=== PATIENT | male | born 1955 ===

== ENCOUNTER 2024-12-22 09:30 | Outpatient (REF) | payer MEDICARE, OTHER, SELFPAY ==
[2024-12-22 15:36] LABS: Resp Syncy Virus RNA Qual PCR NEGATIVE (Negative); SARS COV2 PCR INHOUSE POSITIVE (Negative)
== END 2024-12-22 09:31 | disposition home or self-care (01) ==
LOC: HO.LNP 09:30
PROVIDERS: Nurse Practitioner Family
DX: J06.9 Acute upper respiratory infection, unspecified (principal)
CPT/HCPCS: 87637; 99212

== ENCOUNTER 2024-12-22 09:30 | Outpatient (AMB) | payer MEDICARE, OTHER, SELFPAY ==
--- OUTSIDE RECORDS SUMMARY | 2024-04-13 09:00 | XMS_ITS ---
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 Name Role Phone KAE CRAMER Primary Care Provider UnavailROBIN Valencia Unavailable [phone] MICHAEL RUBIN Unavailable [phone] Allergies Allergen (clinical drug ingredient) Drug/Non Drug Allergy documented on EMR Reaction Allergy Type Onset Date Status Ceftin red man syndrome Drug Allergy Active Results Component Value Reference Range Notes URINALYSIS, DIP STICK/TABLET REAGENT; AUTOMATED, W/O MICROSCOPY (39222) IH Reviewed date:04/13/2024 01:15:15 PM Interpretation: Performing Lab: Notes/Report: Leukocytes neg Nitrite neg Urobilinogen 0.2 Protein neg pH 5.0 Blood neg Specific [place] <=1.005 Ketone neg Bilirubin neg Glucose neg TESTOSTERONE TOTAL AND FREE AND SEX HORMONE BINDING GLOBULIN ([id number]) Reviewed date:08/10/2024 05:15:55 PM Interpretation:Report reviewed by Specialist Performing Lab:[facility], [facility]/Domingo AponteFadi [id number] Dexter Pimentel, [id number] Cleveland Spaulding M.D.,PhD Notes/Report: 0 FASTING:YES FASTING: YES TESTOSTERONE, TOTAL, MS [phone] ng/dL Men with clinically significant hypogonadal symptoms and testosterone values repeatedly in the range of the 200-300 ng/dL or less, may benefit from testosterone treatment after adequate risk and benefits counseling. For additional information, please refer to http://education.internetstores.com/faq/ [email or web address] (This link is being provided for informational/ educational purposes only.) This test was developed and its analytical performance characteristics have been determined by [facility] [place], [place]. It has not been cleared or approved by the U.S. Food and Drug Administration. This assay has been validated pursuant to the CLIA regulations and is used for clinical purposes. TESTOSTERONE, FREE 33.5 30.0-135.0 pg/mL This test was developed and its analytical performance characteristics have been determined by [facility] [place] [place]. It has not been cleared or approved by the U.S. Food and Drug Administration. This assay has been validated pursuant to the CLIA regulations and is used for clinical purposes. SEX HORMONE BINDING GLOBULIN 25 22-77 nmol/L REASON FOR VISIT 1yr PVR, PSA Medications Medication SIG (Take, Route, Frequency, Duration) Notes Start Date End Date Status Travoprost eye drops Active Alfuzosin HCl ER 10 MG 1 tablet immediat ronnie after the same meal Orally Once a day for 90 days 04/13/2024 Active Valsartan 80 MG 1 tablet Orally Once a day Active Sildenafil Citrate 100 MG 1 tablet as needed Orally Once a day for 90 days 04/12/2023 Active Social History Tobacco Use: Social History Observation Description Date Details (start date - stop date) Former Smoker NA - NA Sex Assigned At : Social History Observation Description Sex Assigned At Male Tobacco Status: Question Answer Notes Patient is a former smoker Problems Problem Type SNOMED Code ICD Code Onset Dates Problem Status W/U Status Risk Notes Problem 44296995 Testicular atrophy (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) Active confirmed Problem 302482352699077 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) Active confirmed Problem Hypogonadism in male (E29.1) Active confirmed Problem 7623828906730 Benign prostatic hyperplasia with lower urinary tract symptoms (N40.1) Active confirmed Problem 331384423 Feeling of incomplete bladder emptying (R39.14) Active confirmed Vital Signs Height 70 in 04/13/2024 Weight 208.5 lbs 04/13/2024 BMI 29.91 kg/m2 04/13/2024 Blood pressure systolic 130 mm Hg 04/13/20 24 Blood pressure diastolic 86 mm Hg 024 Encounters Encounter Location Date Provider Diagnosis [id number] [place], [place] [id number] 04/13/2024 MICHAEL RUBIN Benign prostatic hyperplasia with lower urinary tract symptoms N40.1 ; Hypogonadism in male E29.1 ; Combined arterial insufficiency and corporo-venous occlusive erectile dysfunction N52.03 ; Testicular atrophy N50.0 and Feeling of incomplete bladder emptying R39.14 Assessments Encounter Date Diagnosis (ICD Code) Assessment Notes Treatment Notes Treatment Clinical Notes Section Notes 04/13/2024 Benign prostatic hyperplasia with lower urinary tract symptoms (ICD-10 - N40.1) 04/13/2024 Hypogonadism in male (ICD-10 - E29.1) 04/13/2024 Combined arterial insufficiency and corporo-venous occlusive erectile dysfunction (ICD-10 - N52.03) 04/13/2024 Testicular atrophy (ICD-10 - N50.0) 04/13/2024 Feeling of incomplete bladder emptying (ICD-10 - R39.14) Elemental pelvic ultrasound is performed 4 megahertz, ramirez scale/ B mode imaging Transverse and sagittal views No solid masses appreciated in the lower abdomen/ pelvis Moderately distended bladder measuring 7.7 x 6.6 x 7 cm, no intraluminal mass, smooth-walled bladder, estimated residual 184 cc There is not good visualization of the prostate Body habitus does not favor accurate imaging of the prostate. Plan Of Treatment Medication Medication Name Sig Start Date Stop Date Notes Alfuzosin HCl ER 10 MG 1 tablet immediat ronnie after the same meal Orally Once a day for 90 days 04/13/2024 Tamsulosin HCl 0.4 MG TAKE 1 CAPSULE DAILY Sildenafil Citrate 100 MG 1 tablet as ne eded Orally Once a day for 90 days 04/12/2023 Treatment Notes Assessment Notes Feeling of incomplete bladder emptying Elemental pelvic ultrasound is performed 4 megahertz, ramirez scale/ B mode imaging Transverse and sagittal views No solid masses appreciated in the lower abdomen/ pelvis Moderately distended bladder measuring 7.7 x 6.6 x 7 cm, no intraluminal mass, smooth-walled bladder, estimated residual 184 cc There is not good visualization of the prostate Body habitus does not favor accurate imaging of the prostate. Next Appt Details Follow Up: 4 Months, Reason: labs. uroflow/pvr Provider Name:MICHAEL RUBIN , 01/04/2025 09:30:00 AM, [address], [address], [place], [place], [id number], Progress Notes * Bright LONDONODOB:1955 (68 yo M)Acc No.[id number]:04/13/2024 Patient: Bright ELIZABETH Provider: Natacha Rubin MD :1955 A ge:68 Y S ex:Male Date:04/13/2024 C #:[id number] Address:[address] [place] [address], [facility], [id number] Pcp:KAE CRAMER Subjective: * Chief Complaints: * 1 yr PVR, PSA * HPI: D epression Screening: PHQ-2 (2015 Edition) L ittle interest or pleasure in doing things? N ot at all, F eeling down, depressed, or hopeless? N ot at all, T otal Score 0 . F irst Point of Contact Screening: Do any of the following apply to you? N ew rash or open sores N o, F ever and/or chills in the past 7 days N o, C ough N o, M uscle or body aches (other than from an injury) N o, S ore throat N o, I n the past 3 weeks, have you or a close contact traveled outside the [place] and you are now ill? N o. P atient History: 68-year-old male, 3 year history of prostatism Had postoperative urinary retention after laparoscopy On tamsulosin but is quite bothered by his ejaculatory dysfunction Does still have sensation of incomplete emptying Recent PSA is 1.82 Also believes his left testicle is shrinking He has erectile dysfunction Best erection / using sildenafil 100 mg Will try alfuzosin to see if that helps his ejaculatory dysfunction Will also check testosterone levels Postvoid ultrasound today residual 182 cc unable to evaluate the prostate due to body habitus. * ROS: G eneral ROS: Constitutional: N egative for:, fever, chills, fatigue, fever. R herrera/Pulmonology: N egative for:, chest pain with breathing, no worsening cough. C ardiology: N egative for:, chest pain with exertion, palpitations. G astroenterology: N egative for:, blood in stool, fecal incontinence.. * Medical History: * Surgical History: i nguinal hernia repair, bilateral 1996Eye surgery 1963cataract surgery 2019Robotic LIH with mesh. Dr. Alvarez 10/20/2018Opemary anen incarcerated Incisional hernia repair 05.19.2019Laparoscopic repair of recurrent incisional hernia with 11.23.2019 * Hospitalization/Major Diagno stic Procedure: s ee surgical history * Family History: M other: alive. F ather: alive. S ister(s): alive. B rother(s): alive. * Social History: A lcohol Use P atient u ses alcohol. T obacco Status P atient is a former smoker, Q uit in: 2 020, n umber of years 5 1, p acks per day 1 . M arital Status: . Lives with: spouse. Illicit Drug Use P atient/Family reports: N o illicit drug use. C affeine: coffee. Drugs: none. * Medications: T akingSildenafil Citrate 100 MG Tablet 1 tablet as needed Orally Once a day Tamsulosin HCl 0.4 MG Capsule TAKE 1 CAPSULE DAILY Travoprost , Notes to Pharmacist: eye dropsValsartan 80 MG Tablet 1 tablet Orally Once a day Taking Sildenafil Citrate 100 MG Tablet 1 tablet as needed Orally Once a day Taking Tamsulosin HCl 0.4 MG Capsule TAKE 1 CAPSULE DAILY Taking Travoprost , Notes to Pharmacist: eye dropsTaking Valsartan 80 MG Tablet 1 tablet Orally Once a day DiscontinuedBenzonatate 150 MG Capsule 1 capsule Orally Three times a day , Notes to Pharmacist: PRNKetorolac Tromethamine 10 MG Tablet 1 tablet with food or milk as needed Orally every 6 hrs Reglan 5 MG Tablet 1 tablet before meals Orally Twice a day Medication List reviewed and reconciled with the patientDiscontinued Benzonatate 150 MG Capsule 1 capsule Orally Three times a day , Notes to Pharmacist: PRNDiscontinued Ketorolac Tromethamine 10 MG Tablet 1 tablet with food or milk as needed Orally every 6 hrs Discontinued Reglan 5 MG Tablet 1 tablet before meals Orally Twice a day Medication List reviewed and reconciled with the patient * Allergies: C eftin: red man syndrome - Allergy - Criticality Unknownno[Allergies Verified] Objective: * Vitals: H t: 70 in, Ht-cm: 177.8 cm, Wt: 208.5 lbs, Wt-k.57 kg, BMI:29.91, Weight Change: 15.9 lbs, Body Surface Area: 2.16, BP:130/86, Repeat BP:130/86, Pain scale: 0. * Examination: U ROLOGY: Constitutional: a lert and oriented x 3, no acute distress.? Head and face: n ormocephalic, atraumatic. Neck: s upple. Respiratory: u nlabored, clear to auscultation bilaterally, no distress. Cardiovascular: R RR, no edema. Gastrointestial (Abdomen): a bdomen soft, nontender, non distended, no flank pain, no suprapubic tenderness. Male Genitourinary: B ladder not distended, circumcised penis, no lesions, corpora diminished stretch normal scrotum, left testicle is smaller than the right? No mass in either testicle. No hernia.. Extremities: w arm, no edema. Skin: i ntact. Neurologic/Psychiatric: a lert and oriented x 3. Assessment: * Assessment: 1. B enign prostatic hyperplasia with lower urinary tract symptoms - N40.1 (Primary) 2 . H ypogonadism in male - E29.1 3 . C ombined arterial insufficiency and corporo-venous occlusive erectile dysfunction - N52.03 4 . T esticular atrophy - N50.0 5 . F eeling of incomplete bladder emptying - R39.14 ? Plan: * Treatment: Value Reference Range L eukocytes neg * N itrite neg * U robilinogen 0.2 * P rotein neg * p H 5.0 * B lood neg * S pecific [place] <=1.005 * K etone neg * B ilirubin neg * G lucose neg 2.?Hypogonadism in male?LAB: TESTOSTERONE TOTAL AND FREE AND SEX HORMONE BINDING GLOBULIN ([id number]) 3.?Combined arterial insufficiency and corporo-venous occlusive erectile dysfunction? Refill Sildenafil Citrate Tablet, 100 MG, 1 tablet as needed, Orally, Once a day, 90 days, 30, Refills 3.??4.?Feeling of incomplete bladder emptying? Notes: Elemental pelvic ultrasound is performed 4 megahertz, ramirez scale/ B mode imaging Transverse and sagittal views No solid masses appreciated in the lower abdomen/ pelvis Moderately distended bladder measuring 7.7 x 6.6 x 7 cm, no intraluminal mass, smooth-walled bladder, estimated residual 184 cc There is not good visualization of the prostate Body habitus does not favor accurate imaging of the prostate.?? * Immunizations: Immunization record has been reviewed and updated. * Procedure Codes: 8 1003 URINALYSIS, AUTO, W/O [id number] * Preventive Medicine: [place] PAF (Patient Assessment Form): F all Risk Assessment D ate Screening Completed: 1 06/14/2023, I ncreased Fall Risk factors: N o fall risk factors, H istory Falls in Past Year: N o falls in the past year. * Follow Up: 4 Months (Reason: labs. uroflow/pvr) * * Sign off status: Completed true * Provider: Natacha Rubin MD Date: 1 06/14/2023 Generated for Gilbert nielsen/Alexandra/eTransmitting on: 0 12/22/2024 09:33 AM EDT History and Physical Notes * HPI (History of Present Illness) Category Sub-Category Detail Notes Category Not es Depression Screening PHQ-2 (2015 Edition) Little interest or pleasure in doing things?: Not at all Feeling down, depressed, or hopeless?: N ot at all Total Score: 0 Patient History 68-year-old male, 3 year history of prostatism Had postoperative urinary retention after laparoscopy On tamsulosin but is quite bothered by his ejaculatory dysfunction Does still have sensation of incomplete emptying Recent PSA is 1.82 Also believes his left testicle is shrinking He has erectile dysfunction Best erection 01/10 using sildenafil 100 mg Will try alfuzosin to see if that helps his ejaculatory dysfunction Will also check testosterone levels Postvoid ultrasound today residual 182 cc unable to evaluate the prostate due to body habitus. First Point of Contact Screening Do any of the following apply to you? New rash or open sores: No Fever and/or chills in the past 7 days: No Cough: No Muscle or body aches (other than from an injury): No Sore throat: No In the past 3 weeks, have yo u or a close contact traveled outside the [facility] and you are now ill? : No Examination Category Sub-Category Detail Notes Category Not es UROLOGY Constitutional: alert and oriented x 3, n o acute distress Head and face: normocephalic, atrau matic Neck: supple Respiratory: unlabored, clear to auscultation bilaterally, no distress Cardiovascular: RRR, no edema Gastrointestial (Abdomen): abdomen soft, nontender, non distended, no flank pain, no suprapubic tenderness Male Genitourinary: Bladder not distende d, circumcised penis, no lesions, corpora diminished stretch normal scrotum, left testicle is smaller than the right No mass in either testicle. No hernia. Extremities: warm, no edema Skin: intact Neurologic/Psychiatric: alert and orient ed x 3
--- OUTSIDE RECORDS SUMMARY | 2024-12-22 09:34 | XMS_ITS | Patient Health Record ---
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 Name Role Phone Karly MORRIS, Dylan Primary Care Provider Denae Cabral MD, [facility] [phone] Allergies Allergen (clinical drug ingredient) Drug/Non Drug Allergy documented on EMR Reaction Allergy Type Onset Date Status Ceftin Other Reaction: Yes; ALENA SYNDROME Drug Allergy 07/02/2015 Active Reason For Referral No Information Medications Medication SIG (Take, Route, Frequency, Duration) Notes Start Date End Date Status Tamsulosin HCl 0.4 MG 1 capsule Orally O nce a day Active Travoprost (BETO Free) 0.004 % 1 drop into affected eye in the evening Ophthalmic Once a day 08/16/2023 Active Valsartan 80 MG 1 tablet Orally Once a day Active QUEtiapine Fumarate 50 MG 1 tablet at be dtime Orally Once a day Active Problems Problem Type SNOMED Code ICD Code Onset Dates Problem Status W/U Status Risk Notes Problem Villagran's esophagus (281159735) Villagran's esophagus (530.85) 013 Active confirmed Henry-709 210- Problem disorder of stomach (70528379) Other diseases of stomach and duodenum (K31.89) Active confirmed Problem History of polyp of colon (situation) (688443125) History of colon polyps (Z86.010) Active confirmed Problem Polyp colon (82437221) Colon polyp (K63.5) Active confirmed Problem Villagran esophagus (959094279) Villagran 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) Active confirmed Problem Internal hemorrhoids (28815411) Grade I internal hemorrhoids (K64.0) Active confirmed Problem Gastroesophageal reflux disease (120685833) GERD (530.81) 013 Active confirmed Henry-709 210- Problem Other specified disease of esophagus (K22.89) Active confirmed Problem Gastroesophageal reflux disease (461562119) GERD (K21.9) Active confirmed Problem Diverticular disease of colon (428751288) Colon Diverticulosis (K57.30) Active confirmed Plan Of Treatment No Information Insurance Providers Payer Name Payer Address Payer Phone Subscriber Number Group Number Insured Name Patient Relationship to Insured Coverage Start Date Coverage End Date [place] B [place] [employer] [address] [address] [place] [address] [id number] [id number] Bright Moyer Self - patient is the insured 9 STANDARD [address] [place] [address] [id number] Bright Moyer Self - patient is the insured Medical (General) History Surgical History Surgery Date(Month/Year) Hernia Surgery 04/2023
--- NOTE | 2024-12-22 09:44 | AM.OFFWIN_ITS ---
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 HPI Details This is a 68-year-old male patient who presents to the walk-in clinic with a several day history of sinus congestion, dry cough, sneezing. His has similar symptoms in addition to a fever. They recently traveled from [place] on a plane, so patient feels they may have contracted something during flight. He has been using Zyrtec with minimal relief. He denies any fevers, GI symptoms, shortness of breath. Review of Systems Const All systems reviewed & are unremarkable except as noted in HPI and below Physical Exam Vital Signs: Last Vital Signs Temp 98.3 F 12/22/24 09:47 Pulse 70 12/22/24 09:47 BP 124/60 12/22/24 09:47 Pulse Ox 97 12/22/24 09:47 Oxygen Delivery Method Room Air 12/22/24 09:47 BMI result Body Mass Index 30.6 Const General: cooperative, healthy appearing, comfortable and no acute distress HEENT Head: Yes normal to inspection Ears: hearing grossly normal bilaterally General nose exam: Normal external nose present Face and sinus: Yes normal facial exam Throat: Yes posterior oropharynx normal Neck Neck: Yes no lymphadenopathy Resp Effort & Inspection: normal respiratory effort Auscultation: clear to auscultation bilaterally Cardio Palpation: normal PMI Rate: regular rate Rhythm: regular rhythm Heart sounds: S1 normal heart sound present and S2 normal heart sound present Skin General skin exam: no rashes or lesions noted Extrem General: Yes no clubbing, cyanosis or edema Psych Appearance: grossly normal Mental Status: mental status grossly normal Speech and movement: Normal speech and movement present Assessment & Plan Assessment & Plan (1) Upper respiratory infection, viral: Code(s): J06.9 - Acute upper respiratory infection, unspecified Plan: Symptoms consistent with viral upper respiratory illness. COVID/flu/RSV swab was obtained, and patient is aware he will be notified of results once these are available. Advised conservative measures including adequate rest, hydration, healthy food intake, [id number] cold/flu medication for symptom management. He can continue to take Zyrtec if this is helpful. If symptoms do not improve with conservative treatment, or if symptoms worsen/new symptoms develop, he can return to the clinic or the emergency department for evaluation. All questions were answered and patient verbalizes understanding and agrees to plan. Orders: Orders SARS-CoV2/FLU/RSV Today J06.9 - Acute upper respiratory infection, unspecified Coding Level of Care Code Est Pt Level 4 (30204) Diagnoses Upper respiratory infection, viral J06.9
[2024-12-22 09:47] VITALS: BP 124/60; PULSE 70; TEMP 36.8; O2SAT 97; BMI 30.6
== END 2024-12-22 10:07 | disposition home or self-care (01) ==
PROVIDERS: Visit Provider Nurse Practitioner Family
DX: J06.9 Acute upper respiratory infection, unspecified (principal)